=== PATIENT | female | born 1995 | race Caucasian/White ===

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

== ENCOUNTER 2017-03-12 10:02 | Emergency (ER) | payer MEDICAID ==
[2017-03-12 10:19] VITALS: BMI 23.0
[2017-03-12] MEDS ORDERED: Lactated Ringer's 1,000 ML IV ONE (10:39)
--- NOTE | 2017-03-12 10:51 | C.PDOC ---
History Of Present Illness 21 year old female presents to the ED for evaluation of left-sided flank and left upper quadrant abdominal pain which had sudden onset last night. Patient reports nausea. Patient has not taken any medicine or applied any topical creams to the painful areas. She notes her LMP was 02/13. Denies fever, chills, nausea, vomiting, diarrhea, constipation, dysuria, hematuria, history of kidney stones, or past surgical history at this time. Time Seen by Provider: 03/12/17 10:20 Chief Complaint (Nursing): Abdominal Pain History Per: Patient History/Exam Limitations: no limitations Onset/Duration Of Symptoms: Hrs, Sudden Onset Current Symptoms Are (Timing): Still Present Severity: Moderate Pain Scale Rating Of: 7 Location Of Pain/Discomfort: LUQ Radiation Of Pain To:: Flank (left) Quality Of Discomfort: "Pain" Associated Symptoms: Nausea. denies: Fever, Chills, Vomiting, Diarrhea, Constipation, Urinary Symptoms Additional History Per: Patient Abnormal Vaginal Bleeding: No Last Menstral Period: 02/13/2017 Past Medical History Reviewed: Historical Data, Nursing Documentation, Vital Signs Vital Signs: Last Vital Signs Temp 97.6 F 03/12/17 13:03 Pulse 71 03/12/17 13:03 Resp 18 03/12/17 13:03 BP 101/63 03/12/17 13:03 Pulse Ox 100 03/12/17 13:03 - Medical History PMH: Asthma Surgical History: No Surg Hx - [facility] Procedures REMOVAL OF FB NOS (12/22/14) Family History: States: Unknown Family Hx - Social History Hx Tobacco Use: No Hx Alcohol Use: No Hx Substance Use: No - Immunization History Hx Tetanus Toxoid Vaccination: No Hx Influenza Vaccination: No Hx Pneumococcal Vaccination: No Review Of Systems Constitutional: Negative for: Fever, Chills Gastrointestinal: Positive for: Nausea, Abdominal Pain (left upper quadrant ). Negative for: Vomiting, Diarrhea, Constipation Genitourinary: Negative for: Dysuria, Frequency Musculoskeletal: Positive for: Other (left flank pain ) Skin: Negative for: Rash Neurological: Negative for: Headache Physical Exam - Physical Exam Appears: Non-toxic, No Acute Distress Skin: Normal Color, Warm, Dry Head: Atraumatic, Normacephalic Eye(s): bilateral: Normal Inspection, EOMI Oral Mucosa: Moist Neck: Supple Chest: Symmetrical, No Deformity, No Tenderness Cardiovascular: Rhythm Regular, No Murmur Respiratory: Normal Breath Sounds, No Rales, No Rhonchi, No Wheezing Gastrointestinal/Abdominal: Soft, No Tenderness, No Guarding, No Rebound Back: No CVA Tenderness Extremity: Bilateral: Atraumatic, Normal Color And Temperature, Normal ROM Neurological/Psych: Oriented x3, Normal Speech Gait: Steady ED Course And Treatment - Laboratory Results Result Diagrams: 03/12/17 11:04 03/12/17 11:04 Lab Interpretation: No Acute Changes O2 Sat by Pulse Oximetry: 96 (on RA) Pulse Ox Interpretation: Normal - CT Scan/US CT Abdomen/Pelvis Other Rad Studies (CT/US): Interpreted By Me, Read By Radiologist, Radiology Report Reviewed CT/US Interpretation: PROCEDURE: CT Abdomen and Pelvis without Oral or IV contrast. HISTORY: left flank pain, poss stone. COMPARISON: CT abdomen pelvis with contrast performed 09/15/15. TECHNIQUE: Contiguous axial images of the abdomen and pelvis. No oral or IV contrast administered. Coronal and Sagittal reformats generated and reviewed. Radiation dose: Total exam DLP = 269.91 mGy-cm. This CT exam was performed using one or more of the following dose reduction techniques: Automated exposure control, adjustment of the mA and/ or kV according to patient size, and/or use of iterative reconstruction technique. FINDINGS: There is limited evaluation of the solid organs without the administration of IV contrast. LOWER THORAX: No visible consolidation, pleural effusion, or pneumothorax. LIVER: Unremarkable. No gross lesion or ductal dilatation. GALLBLADDER AND BILE DUCTS: Unremarkable unenhanced appearance. PANCREAS: Unremarkable unenhanced appearance. SPLEEN: Unremarkable unenhanced appearance. ADRENALS: Unremarkable unenhanced appearance. KIDNEYS AND URETERS: 2 mm proximal left ureteral calculus (series 3, image 58) with mild fullness of the renal collecting system. No obstructing calculus or hydronephrosis on the right. BLADDER: The urinary bladder appears unremarkable. REPRODUCTIVE: Uterus is present. APPENDIX: The appendix appears within normal limits of caliber. No secondary signs of acute appendicitis. BOWEL: The stomach is nondistended. Lack of oral contrast limits evaluation for bowel pathology. The bowel loops appear within normal limits of caliber without evidence of intestinal obstruction. PERITONEUM: No significant free fluid. No definite free air. LYMPH NODES: Subcm mesenteric and retroperitoneal lymph nodes, nonspecific. No bulky lymphadenopathy identified. VASCULATURE: No aortic aneurysm. BONES: No acute osseous abnormality is detected. OTHER FINDINGS: None. IMPRESSION: 2 mm proximal left ureteral calculus with mild fullness of the renal collecting system. No obstructing calculus or hydronephrosis on the right. Medical Decision Making Medical Decision Making: Impression: 21 year old female with left flank/left upper quadrant abdominal pain Plan: * Bloodwork * Urinalysis * CT Abdomen/Pelvis * Lactated Ringers Solution IV * Tylenol PO * reassess and disposition Progress: Bloodwork, UA, CT A/P ordered and reviewed. Lactated Ringers Soln and Tylenol PO administered. CT shows kidney stone On re-eval patient reports feeling better, pain has improved. Discussed results with patient, and copy of report was provided. Patient feels comfortable going home and will be discharged. Patient given follow up instructions. Instructed to return to ER if symptoms worsen or new symptoms arise. Disposition Counseled Patient/Family Regarding: Diagnosis, Need For Followup, Rx Given - Disposition Referrals: Jeffery Fuentes MD [Staff Provider] - Disposition: HOME/ ROUTINE Disposition Time: 12:57 Condition: STABLE Additional Instructions: Follow up with your primary medical doctor or clinic in 2-5 days for further evaluation. Take medications as prescribed. Return to the emergency department at any time if symptoms persist or worsen. Prescriptions: Ibuprofen [Motrin] 600 mg PO Q8 #30 tab Tamsulosin [Flomax] 0.4 mg PO DAILY #10 cap traMADol [Ultram] 50 mg PO Q8 #20 tab Instructions: Kidney Stones (GEN) Forms: [employer] ([place]uan) - POA Present On Arrival: None - Clinical Impression Clinical Impression: Kidney stone on left side - PA / ASSOCIATE MANAGER / Resident Statement MD/DO has reviewed & agrees with the documentation as recorded. - Scribe Statement The provider has reviewed the documentation as recorded by the Scribe (Gavi Haley) All medical record entries made by the Scribe were at my direction and personally dictated by me. I have reviewed the chart and agree that the record accurately reflects my personal performance of the history, physical exam, medical decision making, and the department course for this patient. I have also personally directed, reviewed, and agree with the discharge instructions and disposition.
[2017-03-12 10:54] LABS: RBC URINE 179 /hpf (0-3); URINE BILIRUBIN NEGATIVE (NEGATIVE); URINE BLOOD 3+ (NEGATIVE); URINE COLOR Yellow (YELLOW); URINE GLUCOSE (UA) NORMAL (Normal); URINE KETONE NEGATIVE (NEGATIVE); URINE LEUKOCYTE ESTERASE NEG Leu/uL (Negative); URINE PROTEIN NEGATIVE (NEGATIVE); URINE UROBILINOGEN NORMAL mg/dL (0.2-1.0); WBC URINE 2 /hpf (0-5)
[2017-03-12] MEDS ORDERED: Lactated Ringer's 1,000 ML ONE (10:54)
[2017-03-12 11:08] LABS: BASO # 0.1 K/uL (0.0-0.2); BASO % 0.8 % (0.0-2.0); EOS # 0.4 K/uL (0.0-0.7); HEMATOCRIT 30.3 % (34.0-47.0); LYMPH # 1.6 K/uL (1.0-4.3); LYMPH % 22.6 % (20.0-40.0); MEAN CELL VOLUME 75.5 fL (81.0-99.0); MEAN CORPUSCULAR HGB CONC 31.8 g/dL (33.0-37.0); MONO # 0.5 K/uL (0.0-0.8); MONO % 7.4 % (0.0-10.0); NRBC % 0.1 % (0.0-2.0); RED CELL DISTRIBUTION WIDTH 16.5 % (11.5-14.5)
[2017-03-12 11:37] LABS: ALB/GLOB RATIO 1.5 (1.0-2.1); ALKALINE PHOSPHATASE 60 U/L (38-126); ALT/SGPT 31 U/L (9-52); BLOOD UREA NITROGEN 8 mg/dL (7-17); CALCIUM 8.2 mg/dl (8.6-10.4); CARBON DIOXIDE 22 mmol/L (22-30); CHLORIDE 103 mmol/L (98-107); GFR AFRICAN-AMERICAN > 60; GLUCOSE,RANDOM 81 mg/dL (65-105); POTASSIUM 3.9 mmol/L (3.6-5.2); SODIUM 135 mmol/L (132-148); TOTAL PROTEIN 7.1 g/dL (6.3-8.3)
--- NOTE | 2017-03-12 12:25 | CT ---
PROCEDURE: CT Abdomen and Pelvis without Oral or IV contrast. HISTORY: left flank pain, poss stone COMPARISON: CT abdomen pelvis with contrast performed 09/15/15 TECHNIQUE: Contiguous axial images of the abdomen and pelvis. No oral or IV contrast administered. Coronal and Sagittal reformats generated and reviewed. Radiation dose: Total exam DLP = 269.91 mGy-cm. This CT exam was performed using one or more of the following dose reduction techniques: Automated exposure control, adjustment of the mA and/or kV according to patient size, and/or use of iterative reconstruction technique. FINDINGS: There is limited evaluation of the solid organs without the administration of IV contrast. LOWER THORAX: No visible consolidation, pleural effusion, or pneumothorax. LIVER: Unremarkable. No gross lesion or ductal dilatation. GALLBLADDER AND BILE DUCTS: Unremarkable unenhanced appearance. PANCREAS: Unremarkable unenhanced appearance SPLEEN: Unremarkable unenhanced appearance ADRENALS: Unremarkable unenhanced appearance KIDNEYS AND URETERS: 2 mm proximal left ureteral calculus (series 3, image 58) with mild fullness of the renal collecting system. No obstructing calculus or hydronephrosis on the right. BLADDER: The urinary bladder appears unremarkable. REPRODUCTIVE: Uterus is present. APPENDIX: The appendix appears within normal limits of caliber. No secondary signs of acute appendicitis. BOWEL: The stomach is nondistended. Lack of oral contrast limits evaluation for bowel pathology. The bowel loops appear within normal limits of caliber without evidence of intestinal obstruction. PERITONEUM: No significant free fluid. No definite free air. LYMPH NODES: Subcm mesenteric and retroperitoneal lymph nodes, nonspecific. No bulky lymphadenopathy identified. VASCULATURE: No aortic aneurysm. BONES: No acute osseous abnormality is detected. OTHER FINDINGS: None. IMPRESSION: 2 mm proximal left ureteral calculus with mild fullness of the renal collecting system. No obstructing calculus or hydronephrosis on the right.
[2017-03-12 12:36] LABS: AST/SGOT 23 U/L (14-36)
[2017-03-12 13:03] VITALS: BP 101/63; PULSE 71; RESP 18; TEMP 97.6
[2017-03-12 17:28] VITALS: O2SAT 96
== END 2017-03-12 13:20 | disposition home or self-care (01) ==
LOC: C.ER 10:02
DX: N20.0 Calculus of kidney (principal)
CPT/HCPCS: 74176; 80053; 81001; 84703; 85025; 99285; J7120

== ENCOUNTER 2017-04-30 14:22 | Emergency (ER) | payer MEDICAID ==
[2017-04-30 14:22] VITALS: BMI 23.0
--- NOTE | 2017-04-30 15:51 | C.PDOC ---
History Of Present Illness 21 yo female c/o right ear pain for 1.5 weeks. Pt notes there is discharge coming from it and a muffled sound. (+) nasal congestion. Pt notes she was evaluated by her PMD and no infection was seen but pain persists. Denies fever, neck pain, chest pain , sob , or difficulty swallowing. Time Seen by Provider: 04/30/17 14:59 Chief Complaint (Nursing): ENT Problem History Per: Patient History/Exam Limitations: None Onset/Duration Of Symptoms: Days Quality (Ear): Pain W/Touch, Discharge Past Medical History Vital Signs: Last Vital Signs Temp 97.9 F 04/30/17 16:46 Pulse 72 04/30/17 16:46 Resp 18 04/30/17 16:46 BP 101/69 04/30/17 16:46 Pulse Ox 100 04/30/17 16:46 - Medical History PMH: Asthma - [facility] Procedures REMOVAL OF FB NOS (12/22/14) Family History: States: Unknown Family Hx - Social History Hx Tobacco Use: No Hx Alcohol Use: No Hx Substance Use: No - Immunization History Hx Tetanus Toxoid Vaccination: No Hx Influenza Vaccination: No Hx Pneumococcal Vaccination: No Review Of Systems Except As Marked, All Systems Reviewed And Found Negative. ENT: Positive for: Ear Pain, Ear Discharge Physical Exam - Physical Exam Appears: Well, Non-toxic, No Acute Distress Skin: Normal Color, Warm, Dry Head: Atraumatic, Normacephalic Eye(s): bilateral: Normal Inspection, PERRL, EOMI Ear(s): Left: Normal, Right: Other ((+) ttp tragus; (+) exudate (-) mastoid tenderness or swelling) Nose: Normal Oral Mucosa: Moist Throat: Normal, No Erythema, No Exudate Neck: Normal, Normal ROM, Supple Chest: Symmetrical Cardiovascular: Rhythm Regular Respiratory: Normal Breath Sounds Back: Normal Inspection Extremity: Normal ROM Neurological/Psych: Oriented x3, Normal Speech ED Course And Treatment O2 Sat by Pulse Oximetry: 98 Disposition - Disposition Referrals: See Delgado MD [Staff Provider] - Disposition: HOME/ ROUTINE Disposition Time: 15:49 Condition: STABLE Additional Instructions: Follow up with referral physician in 1-2 days without fail for further evaluation. Take medications as prescribed. Return to the emergency department at any time if symptoms persist or worsen. Prescriptions: Guaifen/Dextromethorphan/PE [Mucinex Fast-Max Congest-Cough] 1 each PO Q6 #20 tablet Ibuprofen [Motrin] 600 mg PO Q6 PRN #20 tab PRN Reason: Pain, Mild (1-3) Neomycin/Polymyxin/Hydrocortis [Cortisporin Otic Susp] 3 drop TOP TID #1 bottle Instructions: Otitis Externa (ED) Forms: [employer] (Swedish) - Clinical Impression Clinical Impression: Otitis externa
[2017-04-30 16:47] VITALS: BP 101/69; PULSE 72; RESP 18; TEMP 97.9
[2017-04-30 16:55] VITALS: O2SAT 98
== END 2017-04-30 16:46 | disposition home or self-care (01) ==
LOC: C.ER 14:22
DX: H60.91 Unspecified otitis externa, right ear (principal)